=== PATIENT | male | born 1960 | race Caucasian/White ===

== ENCOUNTER 2018-01-19 12:22 | Emergency (ER) | payer BC, SELFPAY ==
[2018-01-19] MEDS ORDERED: Bacitracin Zinc 1 Packet ONE (13:07)
== END 2018-01-19 13:29 | disposition home or self-care (01) ==
LOC: ERS 12:22
DX: S42.301D Unspecified fracture of shaft of humerus, right arm, subsequent encounter for fracture with routine healing (principal); S72.002D Fracture of unspecified part of neck of left femur, subsequent encounter for closed fracture with routine healing; I10 Essential (primary) hypertension; Z85.3 Personal history of malignant neoplasm of breast; Z79.891 Long term (current) use of opiate analgesic; Z79.899 Other long term (current) drug therapy; W19.XXXD Unspecified fall, subsequent encounter

== ENCOUNTER 2018-02-05 11:47 | Emergency (ER) | payer SELFPAY ==
--- NOTE | 2018-02-05 13:05 | ULT ---
VENOUS DOPPLER ULTRASOUND OF THE LEFT LOWER EXTREMITY: Date: 02/05/18 HISTORY: Left lower extremity pain. Patient had hip surgery 3 weeks ago and not ambulatory. TECHNIQUE: Lynn scale ultrasound with color flow and spectral Doppler imaging of the deep venous systems of the left lower extremity performed. FINDINGS: There is good flow, compression, and augmentation noted in the left common femoral, femoral, deep fem oral, popliteal, posterior tibial, and greater saphenous veins. IMPRESSION: No evidence of deep venous thrombosis in the left lower extremity. POS: [facility]
--- NOTE | 2018-02-05 13:12 | RAD ---
LEFT HIP 2 VIEWS: Date: 02/05/18 HISTORY: Hip pain, surgery 5 weeks ago. FINDINGS/IMPRESSION: There are postop changes in the left proximal femur with metallic hardware in place. No acute fractur e, dislocation, or bony destruction is identified. There are mild degenerative changes in the left hi p joint. POS: [facility]
== END 2018-02-05 14:30 | disposition home or self-care (01) ==
LOC: ERS 11:47
DX: M25.552 Pain in left hip (principal); I10 Essential (primary) hypertension; F41.9 Anxiety disorder, unspecified; Z79.899 Other long term (current) drug therapy; Z85.3 Personal history of malignant neoplasm of breast; W19.XXXA Unspecified fall, initial encounter

== ENCOUNTER 2018-02-20 12:13 | Inpatient (IN) | payer SELFPAY ==
--- NOTE | 2018-02-20 14:55 | RAD ---
LEFT HIP THREE VIEWS: History: Left hip surgery 7 weeks ago. Left hip pain. FINDINGS/IMPRESSION: Post op changes with metallic hardware in the left proximal femur again seen without change in alignm ent. No significant callus formation is identified. There are minimal degenerative changes in the hip joint. POS: [facility]
[2018-02-20 15:20] LABS: #Basophils 0.1 thou/uL (0.0-0.2); #Lymphocytes 1.5 thou/uL (1.20-3.40); #Monocytes 0.6 thou/uL (0.11-0.59); %Basophils 0.7 % (0.0-1.0); %Eosinophils 0.5 % (0.0-10.0); %Lymphocytes 15.9 % (21.0-51.0); %Monocytes 6.6 % (0.0-10.0); %Neutrophils 76.3 % (42.0-75.0); Hemoglobin 16.3 g/dL (14.0-18.0); Mean Corpuscular HGB CONC 31.5 g/dL (32.0-36.0); Mean Corpuscular Hemoglobin 27.1 pg (27.0-31.0); Mean Corpuscular Volume 86.1 fl (80.0-94.0); Mean Platelet Volume 9.1 fL (7.4-10.4); Platelet Count 371 thou/uL (130-400); RBC Distribution Width 12.6 % (11.5-14.5); Red Blood Cell (RBC) Count 6.03 mill/uL (4.70-6.10); White Blood Cell (WBC) Count 9.1 thou/uL (4.8-10.8)
[2018-02-20 15:43] LABS: ALT (SGPT) 20 U/L (8-55); AST (SGOT) 48 U/L (5-34); Albumin 3.9 g/dL (3.5-5.0); Alkaline Phosphatase 192 U/L (40-150); Anion Gap 20 mmol/L (10-20); BUN (Urea Nitrogen) 87 mg/dL (8.4-25.7); Bilirubin, Total 0.9 mg/dL (0.2-1.2); Calc. Creatinine Clearance 0 mL/min (70-130); Carbon Dioxide 28 mmol/L (22-29); Chloride 88 mmol/L (98-107); Estimated GFR-MDRD 33; Globulin 4.9 g/dL (2.4-3.5); Glucose 124 mg/dL (70-105); Potassium 3.9 mmol/L (3.5-5.1); Protein, Total 8.8 g/dL (6.0-8.3); Sodium 132 mmol/L (136-145)
[2018-02-20 15:48] LABS: Calcium 15.2 mg/dL (7.8-10.44)
[2018-02-20 16:11] LABS: Acetaminophen Less than 6.0 mcg/mL (10.0-30.0); Alcohol Less than 10 mg/dL (Less than 10); CK (CPK) 56 U/L (30-200); Salicylate Less than 8.0 mg/dL (15.0-30.0)
[2018-02-20 16:25] LABS: CKMB 0.9 ng/mL (0-6.6); Troponin I 0.026 ng/mL (< 0.028)
[2018-02-20] MEDS ORDERED: Sodium Chloride 0.9% 1,000 ML IV SCH (18:34)
[2018-02-20] MEDS ORDERED: Dextrose 5% in Water 1,000 ML IV PRN (18:34)
[2018-02-20] MEDS ORDERED: Guaifenesin DM 100-10/5 ML UDCUP PO PRN (18:34)
[2018-02-20] MEDS ORDERED: Dextrose 50% Abboject 50 ML SYRINGE SLOW IVP PRN (18:34)
[2018-02-20] MEDS ORDERED: Fleet Enema 133 ML BOT PR PRN (18:34)
[2018-02-20] MEDS ORDERED: Milk Of Magnesia 30 ML UDCUP PO PRN (18:34)
[2018-02-20] MEDS ORDERED: Calcitonin,Salmon,Synthetic 200 UNITS/ML SC SCH (19:00)
[2018-02-20 19:30] LABS: Troponin I 0.022 ng/mL (< 0.028)
[2018-02-20] MEDS ORDERED: Furosemide 40 MG/4 ML VIAL SLOW IVP SCH (20:15)
[2018-02-20] MEDS ORDERED: Sodium Chloride 0.9% 10 ML ONE (20:41)
[2018-02-20] MEDS: Heparin 5,000 UNITS/ML VIAL SC SCH (20:48)
[2018-02-20] MEDS: Sodium Chloride 0.9% 1,000 ML IV SCH (20:51)
[2018-02-20] MEDS: Famotidine 20 MG TAB PO SCH (23:00)
[2018-02-20] MEDS: Docusate 100 MG CAP PO SCH (23:00)
--- NOTE | 2018-02-20 23:37 | CT ---
CT OF THE CHEST WITHOUT CONTRAST CT OF THE ABDOMEN AND PELVIS WITHOUT CONTRAST 02/20/18 COMPARISON: None. HISTORY: History of breast cancer. Evaluate for malignancy. TECHNIQUE: 1. Multiple contiguous axial images were obtained in a CT of the chest without contrast. Coronal reformats were performed. 2. Multiple contiguous axial images were obtained in a CT of the abdomen and pelvis without cont rast. Coronal reformats were performed. FINDINGS: CT CHEST: There are too numerous to count cannonball metastases scattered throughout the lungs. There are areas of compression atelectasis in the left lower lobe. No pleural effusion is seen. The heart is normal in size. No hilar or mediastinal lymphadenopathy are seen. There are numerous sclerotic and lytic lesions throughout the skeleton. This involves the ribs, and t o a greater extent the spine. There is height loss of the T12 vertebral body likely secondary to a pa thologic compression fracture with approximately 50% height loss. None of the thoracic spine lesions encroach upon the central canal. The chest wall soft tissues are unremarkable. CT ABDOMEN/PELVIS: There are subtle hypodensities in the liver which cannot be definitely characterized without IV contr ast but are concerning for hepatic metastases given the significant lung findings. The gallbladder, k idneys, adrenal glands, spleen, and pancreas are unremarkable although evaluation is limited without IV contrast. The large and small bowel are unremarkable. The appendix is normal. No abdominal or pelvic lymphadeno johnathan are seen. The patient has hardware in the left hip. There are numerous lytic and sclerotic lesions scattered throughout the skeleton which likely represe nt osseous metastases. At L1, in the right aspect of the pedicle, there is a large lesion measuring 3 .7 cm in size which appears to narrow the right aspect of the central canal. This is the largest of t he osseous lesions in the skeleton. The abdominal wall soft tissues are unremarkable. IMPRESSION: 1. 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 2. Hypodense small lesions in the liver likely represent hepatic metastases but cannot be charac terized without IV contrast. 3. Diffuse osseous metastatic disease. This is greatest in the spine and there is a lesion at L1 which causes narrowing of the central canal. There is also a compression deformity of the T12 verteb ral body secondary to significant involvement of the vertebral body by metastatic lesions. POS: [facility]
[2018-02-20] MEDS: Acetaminophen 325 MG TAB PO PRN (23:45)
--- NOTE | 2018-02-21 00:03 | CON ---
DATE OF CONSULTATION: 02/20/2018 CONSULTING PHYSICIAN: Dr. Alvarez. REQUESTING PHYSICIAN: Dr. Sim. REASON FOR CONSULTATION: Severe hypercalcemia and acute kidney injury. IMPRESSION: 1. Severe hypercalcemia. This is concerning for hypercalcemia in the face of malignancy, especially in this patient with remote history of breast cancer status post-surgical resection. However, the potential etiologies are not completely ruled out in this patient. Given the recent history of surgery and subsequent immobilization, this on itself can contribute to the hypercalcemia. Also, this patient has been on vitamin D and calcium supplementation. All these things put together could have generated this severe hypercalcemia that the patient is presenting with. 2. Mental status change. This is likely in the context of severe hypercalcemia. 3. Acute kidney injury. This is likely related to the hypercalcemia in the face of possible small nephrocalcinosis, plus or minus hyperfiltration that may have resulted in prerenal state compounded by the fact this patient has not been eating and drinking ok. PLAN: 1. Aggressive IV fluid resuscitation. 2. Calcitonin subcutaneous. 3. Loop diuretic to cover with aggressive IV fluid. 4. Discontinue this vitamin D supplementation. 5. Parathyroid hormone as being checked and this is suppressed as expected in this patient. 6. We will try and check vitamin D level. 7. Further management will be dependent on the clinical course. It will be good also to investigate this patient for possible malignancy. HISTORY 57 year old gentleman who was brought in here with mental status change-I could not get any history from him as patient is obviously confused-On presntation was not to be severely hypercalcemic with evidence of JOSSELIN and clinicaly dry-Has not been eating well and recent history of fall resulting in multiple fractures noted. PAST MEDICAL HISTORY: Significant for breast cancer status post-surgical resection, hypertension. MEDICATIONS: Reviewed and as documented on [email or web address]. ALLERGIES: PSEUDOEPHEDRINE. FAMILY HISTORY: Not significantly related to presenting illness. SOCIAL HISTORY: Denies alcohol, tobacco or illicit drug use. REVIEW OF SYSTEMS: Highly limited given the mental status of this patient. The patient could not offer much of any history as patient is completely confused and goes off tangent, talking of other things. PHYSICAL EXAMINATION: GENERAL: The patient noted to be very dry with the following vital signs. VITAL SIGNS: Afebrile with temperature 97.6, pulse 81, respiratory rate of 18, O2 sat 91%, blood pressure 129/90. HEENT: Remarkable for dry oral mucosa. Neck was supple. No conjunctival injection or icterus. CARDIOVASCULAR SYSTEM: First and second heart sounds were heard. RESPIRATORY SYSTEM: Clear to auscultation. DIGESTIVE: Revealed a benign abdomen with positive bowel sounds. EXTREMITIES: No peripheral edema. SKIN: No new gross rash. NEUROLOGIC: Revealed a patient who is confused with no lateralizing sign. SUMMARY: A 57-year-old gentleman who presented here with severe hypercalcemia, symptomatic in the face of recent fractures status post-surgical fixation. Thank you for this consultation. We will follow with you. LJ
--- NOTE | 2018-02-21 00:55 | HP ---
REASON FOR ADMISSION: Acute kidney injury, hypercalcemia likely due to malignancy, failure to thrive. HISTORY OF PRESENTING ILLNESS: The patient says he has been going downhill from last 2 weeks. He has not been able to eat or drink from last 2 weeks due to very poor appetite. He occasionally drinks a sip of Ensure. He has also not been drinking enough fluids. This has been ongoing for 2 weeks now. He gives history of fall when he tried to open a door and got entangled with a cane he was using for suspected quadriceps injury which he thought. During this fall, the patient sustained fracture of right humerus and left hip. This was on 01/02. He had surgery for the same at [facility] in [place]. The patient apparently moved there and purchased land and wanted to start new life. He was discharged on 01/04 after surgery and the patient came back here. He lives with his brother and a friend of him. He has seen Dr. Farrar 2 weeks back and was given a prescription for Percocet. He has taken nearly 19 tablets of the same in the last one week. He has also been taking Motrin 1 to 2 tabs a day for pain. No complaints of blood in the stool. The last regular bowel movement he had was 2 weeks back. He says he is constipated as he is not eating anything. Also, of note, the patient was 199 pounds when he got admitted in December in [place], currently he is around 176 pounds and has lost nearly 23 pounds now. PAST MEDICAL AND SURGICAL HISTORY: History of right breast cancer status post mastectomy done in 2013 at [facility]; hypertension; anxiety disorder ; left hip and right humerus surgeries done on 01/03/2018 at [facility] in [place]. CURRENT MEDICATIONS: Nadolol 40 mg daily, lisinopril with hydrochlorothiazide 20/12.5 mg p.o. daily, alprazolam 0.5 mg daily p.r.n. for anxiety, calcium, Percocet 5/325 mg q.6 hourly p.r.n., and Motrin p.r.n. ALLERGIES: PSEUDOEPHEDRINE. PERSONAL HISTORY: Does not abuse alcohol or drugs. No history of smoking. FAMILY HISTORY: Mother at the age of 91 years from old age. Father at the age of 69 years. He has had history of lung cancer with metastasis to brain. REVIEW OF SYSTEMS: The following complete review of systems was negative, unless otherwise mentioned in the HPI or below: Constitutional: Weight loss or gain, ability to conduct usual activities. Skin: Rash, itching. Eyes: Double vision, pain. ENT/Mouth: Nose bleeding, neck stiffness, pain, tenderness. Cardiovascular: Palpitations, dyspnea on exertion, orthopnea. Respiratory: Shortness of breath, wheezing, cough, hemoptysis, fever or night sweats. Gastrointestinal: Poor appetite, abdominal pain, heartburn, nausea, vomiting, constipation, or diarrhea. Genitourinary: Urgency, frequency, dysuria, nocturia. Musculoskeletal: Pain, swelling. Neurologic/Psychiatric: Anxiety, depression. Allergy/Immunologic: Skin rash, bleeding tendency. PHYSICAL EXAMINATION: GENERAL: The patient is a 57-year-old male who is currently very lethargic, but responds well to questions. VITAL SIGNS: Blood pressure 126/70, pulse 76 per minute, respiratory rate 16 per minute, temperature 97.8 degrees Fahrenheit, saturating 98% on 2 L nasal cannula. NECK: Supple, no elevated JVD. HEENT: Eyes, extraocular muscles intact. Pupils reacting to light. Oral cavity, mucous membranes are dry. No exudates or congestion. CARDIOVASCULAR: S1, S2 heard. Regular rhythm. RESPIRATORY: Air entry 1+ bilateral. No rales or rhonchi. ABDOMEN: Soft, bowel sounds heard. No tenderness, rigidity or guarding. EXTREMITIES: No peripheral edema or calf tenderness. VASCULAR SYSTEM: Peripheral pulses 2+ bilateral, no ischemic ulcerations or gangrene. CENTRAL NERVOUS SYSTEM: No gross focal deficits seen. The patient is lethargic , but oriented well. PSYCHIATRIC: The patient appears to be a bit depressed, otherwise, no hallucinations or delusions. LABORATORY AND X-RAY FINDINGS: EKG done shows normal sinus rhythm at 77 beats per minute. There are T-wave inversions seen in V3-V6. White count of 9, H and H 16 and 51, platelet count 371, MCV is 86 with 76% neutrophils. Sodium 132 , chloride 88, serum bicarbonate 28, BUN 87, creatinine 2.0. Serum glucose 124. Serum calcium is 15.2. Albumin is 3.9, AST 48, ALT 20, alkaline phosphatase 192. First set of cardiac enzymes are negative. Lipase is 146. TSH 5.65. Acetaminophen levels are less than 6. Plasma alcohol less than 10. Hip x-ray done shows postop changes with metallic hardware in the left proximal femur. CLINICAL IMPRESSION AND PLAN: The patient will be admitted to telemetry for acute kidney injury, moderate to severe dehydration, failure to thrive, hypercalcemia, to rule out malignancy. I did discuss his findings with Dr. Farrar, orthopedic surgeon, who was also of the opinion that it might have been a pathologic fracture that the patient sustained in December. In view of this, we will obtain a CT chest, abdomen and pelvis without contrast in view of acute kidney injury to see if there is any mass. Echo with 2D Doppler for ejection fraction. The patient has mild elevated lipase and alkaline phosphatase, so we will obtain a CA 19-9. We will also obtain CEA levels. I have consulted Dr. Alvarez for Nephrology. He will be on intense bowel regimen for his constipation. Normal saline at 150 mL per hour for hypercalcemia. We will hold on zoledronic acid for now until a diagnosis is established or if his repeat calcium is still high in the morning. The patient appears to be hemodynamically stable and will be closely monitored on telemetry for now. The patient likely will need placement as he has been bedridden and has been wheelchair bound after his surgery. Morning team should try to obtain records from [place] where he had surgery and if any biopsies were obtained/ suspicion of pathological fracture etc. CODE STATUS: FULL. His brother is the power of attorney law clerk for him. [email or web address]
[2018-02-21] MEDS: Sodium Chloride 0.9% 1,000 ML IV SCH ×5 (01:46→18:14)
[2018-02-21 05:27] LABS: #Eosinphils 0.1 thou/uL (0.0-0.7); #Lymphocytes 1.1 thou/uL (1.20-3.40); #Monocytes 0.7 thou/uL (0.11-0.59); #Neutrophils 6.9 thou/uL (1.40-6.50); %Basophils 0.1 % (0.0-1.0); %Lymphocytes 12.4 % (21.0-51.0); %Neutrophils 78.6 % (42.0-75.0); Hemoglobin 14.9 g/dL (14.0-18.0); Mean Corpuscular HGB CONC 32.2 g/dL (32.0-36.0); Mean Corpuscular Hemoglobin 27.8 pg (27.0-31.0); Mean Corpuscular Volume 86.2 fl (80.0-94.0); Mean Platelet Volume 9.1 fL (7.4-10.4); Platelet Count 315 thou/uL (130-400); RBC Distribution Width 12.5 % (11.5-14.5); Red Blood Cell (RBC) Count 5.35 mill/uL (4.70-6.10); White Blood Cell (WBC) Count 8.8 thou/uL (4.8-10.8)
[2018-02-21 05:45] LABS: Albumin 3.4 g/dL (3.5-5.0); Anion Gap 19 mmol/L (10-20); BUN (Urea Nitrogen) 66 mg/dL (8.4-25.7); BUN/Creatinine Ratio 46.15; Calc. Creatinine Clearance 61 mL/min (70-130); Calcium 11.9 mg/dL (7.8-10.44); Carbon Dioxide 25 mmol/L (22-29); Chloride 95 mmol/L (98-107); Estimated GFR-MDRD 51; Glucose 105 mg/dL (70-105); Phosphorus 2.4 mg/dL (2.3-4.7); Potassium 3.5 mmol/L (3.5-5.1); Sodium 135 mmol/L (136-145)
--- NOTE | 2018-02-21 09:56 | PRG ---
DATE OF SERVICE: 02/21/2018 SUBJECTIVE: The patient seems to be doing much better. PHYSICAL EXAMINATION: VITAL SIGNS: Afebrile, temperature 96.3, pulse 77, respiratory rate 16, O2 sat 96%, blood pressure 1 36/87. HEENT: Unremarkable. Moist oral mucosa. No conjunctival injection or icterus. NECK: Supple. CARDIOVASCULAR: First and second heart sounds were heard. RESPIRATORY: Clear to auscultation. DIGESTIVE: Revealed a benign abdomen with positive bowel sound. EXTREMITIES: No peripheral edema. SKIN: No new gross rash. LYMPHATICS: No peripheral lymphadenopathy. LABORATORY INVESTIGATIONS: Showed a creatinine down to 1.43, BUN of 66, calcium down to 11.9. IMAGING: CAT scan showed extensive metastasis. IMPRESSION: 1. Severe hypercalcemia in the context of diffuse bone metastasis. 2. Acute kidney injury, which seems to have improved. PLAN: 1. Deescalate IV fluid resuscitation. 2. Consider Oncology consults. 3. Consider administration of zoledronic acid. 4. Further management to be dependent on the clinical course. Prognosis is poor.
[2018-02-21] MEDS: Docusate 100 MG CAP PO SCH ×3 (09:58→21:05)
[2018-02-21] MEDS: Heparin 5,000 UNITS/ML VIAL SC SCH ×2 (09:58→21:06)
[2018-02-21] MEDS: Polyethylene Glycol 3350 17 GM Packet PO SCH (09:59)
[2018-02-21] MEDS ORDERED: Zoledronic Acid 4 MG in Sodium Chloride 0.9% 100 ML IVPB SCH (10:00)
--- NOTE | 2018-02-21 13:14 | PDOC.PN ---
- Subjective Encounter Start Date: 02/21/18 Encounter Start Time: 13:10 Subjective: nsg notes rev, fatou ovn, pt oriented x3, still tired, no focal c/o -: reports he had a mastectomy 5yrs ago at [facility] for breast ca no -: subsequent f/u bc he wasn't told he needed to, has PCP in town - Objective Resuscitation Status: Resuscitation Status FULL:Full Resuscitation Vital Signs & Weight: Vital Signs (12 hours) Temp Pulse Resp BP BP Pulse Ox 02/21/18 08:00 96.3 F L 77 16 136/87 96 02/21/18 04:00 97.8 F 82 12 125/84 91 L Weight Weight 163 lb 9.6 oz I&O: 02/20/18 02/21/18 02/22/18 06:59 06:59 06:59 Intake Total 2384 Output Total 1925 Balance 459 Result Diagrams: 02/21/18 05:05 02/21/18 05:05 Phys Exam - Physical Examination Constitutional: NAD HEENT: PERRLA, moist MMs, sclera anicteric Respiratory: no wheezing, no rales, no rhonchi, clear to auscultation bilateral Cardiovascular: RRR, no significant murmur, no rub Gastrointestinal: soft, non-tender, no distention, positive bowel sounds Neurological: moves all 4 limbs Psychiatric: normal affect, A&O x 3 Dx/Plan - Plan * 57M hx breast ca p/w cc: weakness * * hypercalcemia * concerned related to potential malignancy given pattern of radiographic findings in CT * improving - IVF, calcitonin * apprec nephrology c/s JOSSELIN * likely 2/2 vol depletion/ dehydration * continue to monitor * close I/O * suspect improvement with hydration suggesting pre-renal component CT chest/abd/pelv finding c/w potential metastatic dz * unclear primary but pt with personal hx of breast ca * apprec pulm c/s re: whether or not bronch would be an option for obtaining diagnostic sample diet: renal, as sushma activity: as sushma dvt ppx heparin 2/2 renal dysfxn Review of Systems - Medications/Allergies Allergies/Adverse Reactions: Allergies Allergy/AdvReac Type Severity Reaction Status Date / Time pseudoephedrine Allergy Verified 02/20/18 18:44 Medications: Current Medications Acetaminophen (Tylenol) 650 mg PO Q4H PRN PRN Reason: Headache/Fever or Pain Last Admin: 02/20/18 23:45 Dose: 650 mg Dextrose/Water (Dextrose 50%) 25 gm SLOW IVP PRN PRN PRN Reason: Hypoglycemia Docusate Sodium (Colace) 100 mg PO BID [facility] Last Admin: 02/21/18 10:09 Dose: Not Given Famotidine (Pepcid) 20 mg PO 2100 [facility] Last Admin: 02/20/18 23:00 Dose: 20 mg Glucagon (Glucagon) 1 mg IM PRN PRN PRN Reason: Hypoglycemia Guaifenesin/Dextromethorphan (Robitussin Dm) 15 ml PO Q4H PRN PRN Reason: Cough Heparin Sodium (Porcine) (Heparin) 5,000 units SC BID [facility] Last Admin: 02/21/18 09:58 Dose: 5,000 units Dextrose/Water (D5w) 1,000 mls @ 0 mls/hr IV .Q0M PRN; As Directed PRN Reason: Hypoglycemia Zoledronic Acid 4 mg/ Sodium (Chloride) 100 mls @ 400 mls/hr IVPB 1000 [facility] Stop: 02/21/18 14:00 Last Admin: 02/21/18 11:00 Dose: 100 mls Sodium Chloride (Normal Saline 0.9%) 1,000 mls @ 100 mls/hr IV .Q10H [facility] Last Admin: 02/21/18 10:09 Dose: 1,000 mls Magnesium Hydroxide (Milk Of Magnesium) 30 ml PO DAILYPRN PRN PRN Reason: Constipation Polyethylene Glycol (Miralax) 17 gm PO DAILY [facility] Last Admin: 02/21/18 09:59 Dose: Not Given Sodium Biphosphate/Sodium Phosphate (Fleet Enema) 133 ml RI ONE PRN PRN Reason: Constipation Stop: 02/21/18 18:35
[2018-02-21] MEDS: Famotidine 20 MG TAB PO SCH (21:06)
[2018-02-21] MEDS: Acetaminophen 325 MG TAB PO PRN (22:33)
[2018-02-22] MEDS ORDERED: ALPRAZolam 1 MG TAB PO SCH ×3 (01:45→21:00)
[2018-02-22] MEDS: Sodium Chloride 0.9% 1,000 ML IV SCH ×2 (05:57→21:24)
[2018-02-22 07:47] VITALS: BMI 23.8
[2018-02-22 08:58] LABS: INR-International Normal Ratio 1.1; Prothrombin Time 14.5 SEC (12.0-14.7)
[2018-02-22] MEDS: Nadolol 40 MG TAB PO SCH (09:40)
[2018-02-22] MEDS: Heparin 5,000 UNITS/ML VIAL SC SCH ×2 (09:41→21:25)
[2018-02-22] MEDS: Polyethylene Glycol 3350 17 GM Packet PO SCH (09:43)
[2018-02-22] MEDS: Docusate 100 MG CAP PO SCH ×2 (09:43→21:25)
--- NOTE | 2018-02-22 10:22 | CON ---
DATE OF CONSULTATION: 02/21/2018 HISTORY OF PRESENT ILLNESS: Mr. Prakash is a very pleasant 57-year-old male. He tells me he was diagnosed 5 years ago with breast cancer in his right breast. He says his presenting symptom was a lump on his breast. Breast cancer was resected. He tells me that he had lymph node biopsied and that there was cancer in the lymph nodes. He tells me he had a followup CT after the surgery of his chest and abdomen and was told that if he did not hear from the doctors, he was fine and not to worry. He has not seen an oncologist or surgeon since that time. He recently moved up to the [facility] and bought 10 acres as well as a trailer up there. He paid just over 30,000 dollars for. He was opening a door and got a tangled up in his crutches, which he said led to a fall. He is walking on crutches because he thought he had a pulled thigh muscle. He had a surgery at [facility] and subsequently came back here for support. He has been seen by Dr. Farrar. He says he has been constipated (possibly because of the opiates he has taken in) and losing weight. He is here because of the above complaints as well as hypercalcemia and very abnormal chest x-ray and chest CT. PAST MEDICAL HISTORY: 12 point system reviewed otherwise remarkable for hypertension. MEDICATIONS: Prior to admission, he was on nadolol, hydrochlorothiazide, lisinopril, Xanax for anxiety, calcium, Percocet, and Motrin. ALLERGIES: He reports PSEUDOEPHEDRINE intolerance. SOCIAL HISTORY: He is a nonsmoker, nondrinker. He has never used drugs. FAMILY HISTORY: His mother from old age. Father in his 60s of lung cancer. REVIEW OF SYSTEMS: Otherwise negative. He has aches and pains all over and he is extremely weak. His biggest complaint to me was that he was not stable on his feet and needed a lot of help ambulating and needs some rehabilitation. Review of systems is otherwise 10 point negative. PHYSICAL EXAMINATION: GENERAL: This is a very pleasant gentleman, in no distress. VITAL SIGNS: Blood pressure 147/86 this afternoon, his heart rate 87. He is afebrile, respiratory rate is 16, oximetry is surprisingly 96% on room air. HEENT: Pupils are equal. Extraocular movements are full. NECK: Supple, no lymphadenopathy. LUNGS: Clear. HEART: Regular rhythm, no S3. ABDOMEN: Soft and nontender. I do not feel any hepatomegaly or masses. EXTREMITIES: No clubbing, cyanosis, or edema. His scar where his right breast was is well healed. He has a concave area around where his pectoralis muscle would be. LYMPH: I did not palpate any axillary, supraclavicular, cervical or inguinal nodes. IMAGING: Chest CT reviewed by me shows multiple round irregular shaped lesions consistent with metastases. LABORATORY DATA: White count is 8.8, hemoglobin is 14.9, platelets 315,000. Sodium 135, potassium 3.5, chloride 95, bicarbonate 25, BUN 66, creatinine 1.43. Creatinine on admission was 2.08. IMPRESSION AND PLAN: Metastatic breast cancer. He also has multiple lytic bone lesions seen on his chest, abdomen and pelvis CT. He has hardware in his left femur. No obvious tumors seen there. The best option would be a CT guided biopsy of one of the lesions at his left lung base, it abuts the pleura. There is a chance he could have endobronchial disease, but the risk for a pneumothorax is low and risk of bleeding is low and the biopsy will not require sedation. I suspect this will give us an adequate amount of tissue to make a diagnosis. We need to obtain records from [place] to see what the hormone status of the resected tumor was. Oncology will be consulted. His hypercalcemia, we will need to be monitored. Suspect he was intravascularly depleted because of his hypercalcemia, hence the elevated creatinine that was improving with hydration. He needs to continue with IV hydration. This is a 70-minute consult, greater than 50% of the time was spent coordinating care on the unit. LJ
[2018-02-22] MEDS ORDERED: Midazolam HCl 2 mg/2 ml Vial ONE (11:12)
[2018-02-22] MEDS ORDERED: Fentanyl 100 MCG/2 ML VIAL ONE (11:12)
[2018-02-22] MEDS ORDERED: Communication Order-Pharmacy FS SCH (13:00)
[2018-02-22 14:38] LABS: Anion Gap 14 mmol/L (10-20); Calc. Creatinine Clearance 97 mL/min (70-130); Calcium 10.7 mg/dL (7.8-10.44); Carbon Dioxide 23 mmol/L (22-29); Chloride 101 mmol/L (98-107); Estimated GFR-MDRD 78; Glucose 93 mg/dL (70-105); Potassium 3.4 mmol/L (3.5-5.1); Sodium 135 mmol/L (136-145)
[2018-02-22 14:50] LABS: BUN (Urea Nitrogen) 28 mg/dL (8.4-25.7)
--- NOTE | 2018-02-22 14:55 | CT ---
CT GUIDED LUNG MASS BIOPSY: Date: 02/22/18 HISTORY: Multiple large lung masses. COMPARISON: CT chest, abdomen, and pelvis dated 02/20/18. TECHNIQUE: The patient was brought to the CT suite. All questions were answered. The patient's left chest was prepped and draped in the normal sterile fashion. Informed consent was o btained. Timeout was performed. Approximately 4 mL of lidocaine was instilled into the superficial and deep soft tissues for anesthes ia. The left lung mass was accessed using a 17 gauge introducer. Using an 18 gauge BioPince needle, a tot al of two 11 mm cores were obtained. The patient tolerated the procedure well and without complicatio n. IMPRESSION: Technically successful CT guided lung mass biopsy. Pathology confirmed adequacy. POS: [facility]
--- NOTE | 2018-02-22 15:01 | PRG ---
DATE OF SERVICE: 02/22/2018 The patient seen and examined with no new complaint noted. PHYSICAL EXAMINATION: VITAL SIGNS: Afebrile, temperature 97, pulse 80, respiratory rate of 14, O2 sat 96%, blood pressure 142/93. HEENT: Unremarkable. CARDIOVASCULAR: First and heart sounds were heard. RESPIRATORY: Clear to auscultation. DIGESTIVE: Revealed a benign abdomen. EXTREMITIES: No peripheral edema. SKIN: No new gross rash. LYMPHATICS: No peripheral lymphadenopathy. IMPRESSION: 1. Severe hypercalcemia in the context of metastatic bone disease. 2. Acute kidney injury, improving. PLAN: 1. Continue renal supportive measures. 2. Patient already received calcitonin, zoledronic acid and on IV fluid. 3. Further management to be dependent on the clinical course.
--- NOTE | 2018-02-22 18:30 | PRG ---
DATE OF SERVICE: 02/22/2018 SUBJECTIVE: Huber Prakash was awakened today. He underwent a CT guided biopsy. He seems to be a clarence le dysarthric today. He has no complaints. OBJECTIVE: VITAL SIGNS: He is afebrile, heart rate is 81, respiratory rate is 20, oximetry on room air is 95%, and blood pressure 156/99. LUNGS: Still clear. HEART: Regular rhythm. ABDOMEN: Soft. IMPRESSION AND PLAN: 1. Probable recurrent metastatic breast cancer. 2. ?mild dysarthria. His medical power of staff attorney is also his best friend, who was at the bedside and we talked about his symptoms. His best friend says that he thinks [facility] called [facility] for follow[facility], but he never would return their calls, so they eventually quit michi molina. I will order magnetic resonance imaging of his brain. He will also need a bone scan and then bone webster rvey of weightbearing bones if he has abnormalities in his long bones. Oncology has been consulted.
[2018-02-22] MEDS: Famotidine 20 MG TAB PO SCH (21:25)
[2018-02-22] MEDS: ALPRAZolam 1 MG TAB PO SCH (21:25)
[2018-02-23] MEDS: hydrALAZINE 20 MG/ML VIAL SLOW IVP PRN ×2 (00:14→08:34)
[2018-02-23] MEDS: Sodium Chloride 0.9% 1,000 ML IV SCH ×3 (06:34→18:04)
[2018-02-23] MEDS: Docusate 100 MG CAP PO SCH ×2 (08:34→22:20)
[2018-02-23] MEDS: Polyethylene Glycol 3350 17 GM Packet PO SCH (08:34)
[2018-02-23] MEDS: Heparin 5,000 UNITS/ML VIAL SC SCH ×2 (08:34→21:38)
[2018-02-23] MEDS: ALPRAZolam 0.5 MG TAB PO SCH (08:34)
[2018-02-23] MEDS: Nadolol 40 MG TAB PO SCH (08:42)
[2018-02-23] MEDS ORDERED: Zoledronic Acid 4 MG in Sodium Chloride 0.9% 100 ML IVPB SCH (10:00)
--- NOTE | 2018-02-23 10:30 | CON ---
DATE OF CONSULTATION: 02/23/2018 REASON FOR CONSULTATION: Probable metastatic breast cancer. HISTORY OF PRESENT ILLNESS: The patient is a 57-year-old man who is admitted for altered mental status and gait instability with pain. He underwent a right mastectomy in 2014 at [facility] in [place] for breast cancer. We have no source documents for review and details are scant. However, it appears he did have at least a positive lymph node. No further treatment was delivered although there were attempts to get him to follow up. He subsequently moved to [facility], but continued to have pain in the left hip that progressed and he then suffered a left femur fracture secondary to a minor fall in the bathroom. There was also a fracture of the right humerus at that time. He underwent surgery at the [facility] with ORIF of the left hip and right humerus fracture. He has not been told of any evidence of a pathologic fracture. The surgery was in December and he has returned to this area to be closer to his brother and friends who are helping care for him. He was then brought to the emergency room with gait instability and altered mental status. The evaluation since admission has revealed no focal neurological findings. However, chemistries confirmed acute kidney injury with creatinine of 2.08 and BUN 87. The calcium was 15.2. Globulin was slightly elevated at 4.9. The alkaline phosphatase was elevated at 192. Imaging has included CT scan of the chest, abdomen, and pelvis which reveals rather dramatic cannonball lesions, too numerous to count, in each lung. There were also numerous sclerotic and lytic lesions throughout the skeleton involving essentially the entire osseous tissue. There were small hypodense lesions within the liver which were indeterminant, but worrisome for metastatic disease in this setting. A left hip film confirmed surgical hardware with no callus formation. No identification of lytic disease was seen. On 02/22/2018, he underwent a CT guided biopsy of a lung lesion and that specimen result is pending. He has been treated with intravenous fluids and calcitonin with normalization of kidney function and calcium. He remains nearly bedridden and has some alteration in speech pattern. I am asked to see the patient at this time to provide further management recommendations. ALLERGIES: He describes sensitivity to PSEUDOEPHEDRINE. MEDICATIONS: Nadolol, lisinopril/hydrochlorothiazide, alprazolam, and Percocet. MEDICAL ILLNESS: The patient had breast cancer as mentioned above. He has a history of hypertension and anxiety. PAST SURGICAL HISTORY: He underwent surgical procedures on the left hip and right humerus as mentioned in the HPI. PERSONAL HISTORY: He does not smoke or use alcohol. FAMILY HISTORY: There is no history of breast or ovarian cancer in the family. The father presumably of lung cancer with metastasis to the brain. REVIEW OF SYSTEMS: Except as mentioned in the history of present illness, the patient denies significant cardiopulmonary, GI, , musculoskeletal, or neurological complaints. PHYSICAL EXAMINATION: VITAL SIGNS: Temperature 98, pulse 86 and regular, respirations 20, blood pressure 153/100. GENERAL: The patient is a somewhat chronically ill man in no acute distress. He is alert, oriented, and cooperative. There is very slight dysphagia with speech. HEENT: The extraocular movements are intact. Pupils equal, round, and reactive to light. NECK: Supple. LUNGS: Clear. CARDIOVASCULAR: Regular rate and rhythm without murmur, rub, gallop or click. ABDOMEN: No tenderness, organomegaly, masses, bruits or ascites. EXTREMITIES: No clubbing, cyanosis, edema. SKIN: Normal. LYMPH: No adenopathy. MUSCULOSKELETAL: No active arthritis. NEUROLOGIC: No focal findings and the cranial nerves II-XII are grossly intact. LABORATORY DATA: See history of present illness. IMAGING: See history of present illness. IMPRESSION: 1. Metastatic breast cancer. 2. Hypercalcemia of malignancy. 3. Altered mental status, concerns of being hypercalcemia or brain metastasis. RECOMMENDATIONS: The patient will undergo breast MRI of the brain and a bone scan, with which I am in agreement. I will add Zometa today for more definitive longer term control of hypercalcemia and to improve the bone health in the setting of osseous metastasis. We will await the biopsy results. He will undoubtedly require chemotherapy and I will arrange for MediPort placement. The exact treatment regimen, however, will depend upon results of the biopsy and the breast cancer profile. When he is ready for discharge, I will follow him up in the office. His friend has my contact information. Thanks very much for allowing me to provide my recommendations. LJ
--- NOTE | 2018-02-23 10:55 | MRI ---
BRAIN MRI WITH AND WITHOUT CONTRAST: Date: 02/23/18 HISTORY: Breast cancer. Dehydration. Altered mental status and hypercalcemia. Evaluate for metastasis. COMPARISON: None. TECHNIQUE: Brain MRI is performed with and without intravenous Gadolinium administration. Multisequential, multi planar imaging is performed. FINDINGS: Central arterial flow-voids are maintained. Absent restricted diffusion. There is limited evaluation of the brain parenchyma due to motion degradation. No obvious loss of cor tical kam-white matter differentiation. No obvious evidence of hydrocephalus. Chronic small vessel i schemic changes of the white matter identified. There is intrinsic T1 hyperintense, T2 hyperintense, loss of signal intensity on the GRE sequence inv olving a lesion in the right cerebellar hemisphere measuring 2.5 x 1.8 cm. An acute hemorrhagic metas tatic focus is favored. There are additional intrinsically T1 hyperintense lesions throughout the bra in parenchyma. Evaluation of the lesions on the postcontrast image is limited due to intrinsic T1 hyp erintensity. Multifocal metastatic lesions are suspected. No significant midline shift. Basilar ciste rns are patent. Partial opacification of bilateral mastoid air cells, right greater than left. IMPRESSION: Multifocal hemorrhagic intracranial metastasis. Continued follow-up with noncontrast head CT is recom mended. POS: [facility]
--- NOTE | 2018-02-23 12:28 | NM ---
NUCLEAR MEDICINE BONE SCAN: Date: 02/23/18 HISTORY: Cancer. COMPARISON: CT dated 02/20/18. TECHNIQUE: Whole body imaging was performed after the intravenous administration of 31.7 mCi technetium-99m MDP. FINDINGS: There is extensive abnormal increased radiotracer uptake throughout the axial and appendicular spine. There is likely a pathologic fracture of the left femur. Abnormal uptake in the right humerus, as we ll as in the ribs, and the thoracic, cervical, and lumbar spine. No disease is seen distal to the humerus or distal to the mid femoral shafts. Both kidneys and urinary bladder are well visualized. IMPRESSION: Extensive axial and appendicular metastatic disease. POS: [facility]
--- NOTE | 2018-02-23 18:08 | PRG ---
DATE OF SERVICE: 02/23/2018 SUBJECTIVE: The patient was seen and examined and noted with the following vital signs. PHYSICAL EXAMINATION: VITAL SIGNS: Afebrile with temperature 97.8, pulse 87, respiratory rate of 12-16, O2 sat 92% with a blood pressure 136/83. HEENT: Unremarkable with moist oral mucosa. Neck is supple. No conjunctival injection or icterus. CARDIOVASCULAR SYSTEM: First and second heart sounds were heard. RESPIRATORY SYSTEM: Clear to auscultation. DIGESTIVE SYSTEM: Revealed a benign abdomen with positive bowel sounds. EXTREMITIES: No peripheral edema. LABORATORY INVESTIGATION: Showed sodium of 135, potassium 3.4, creatinine 0.99, and calcium of 10.7. IMPRESSION: 1. Severe hypercalcemia much improved in the context of metastatic bone disease. 2. Acute kidney injury in the context of severe hypercalcemia, much improved. PLAN: 1. We will continue current renal supportive measures. 2. Further management will be dependent on the clinical course as well as further recommendations fr om the other services.
--- NOTE | 2018-02-23 19:23 | PRG ---
DATE OF SERVICE: 02/23/2018 SERVICE: Pulmonary Medicine. INTERVAL HISTORY: The patient is doing great from a respiratory standpoint. He is breathing comfort ably. He denies having any chest discomfort. Otherwise, there has been no interval change to his co ndition. PHYSICAL EXAMINATION: VITAL SIGNS: Afebrile, pulse 86, respirations 14 and saturation 98% on room air. GENERAL: The patient is awake and alert, in no apparent distress. LUNGS: Decent air entry. There is no prolonged expiratory phase or wheezing present. HEART: Normal rate and regular. ABDOMEN: Soft, nontender and nondistended. Bowel sounds are positive. MUSCULOSKELETAL: No cyanosis or clubbing. No pitting in the bilateral lower extremities. NEUROLOGIC: Grossly nonfocal. IMAGING DATA: 1. MRI of the brain demonstrates multiple metastatic lesions to the brain. There was hemorrhagic co nversion to several of them. 2. Bone scan demonstrates multiple osseous lesions. ASSESSMENT: Widespread metastatic disease with history of breast cancer. PLAN: Pulmonary will continue to follow intermittently during the hospital stay. We will watch his neurologic status closely. If he has any acute decompensation, stat CT of the head will be performed .
[2018-02-23] MEDS: Famotidine 20 MG TAB PO SCH (21:38)
[2018-02-23] MEDS: ALPRAZolam 1 MG TAB PO SCH (21:38)
[2018-02-24] MEDS: Sodium Chloride 0.9% 1,000 ML IV SCH ×3 (00:13→19:54)
[2018-02-24] MEDS: Nadolol 40 MG TAB PO SCH (08:33)
[2018-02-24] MEDS: ALPRAZolam 0.5 MG TAB PO SCH (08:33)
[2018-02-24] MEDS: Polyethylene Glycol 3350 17 GM Packet PO SCH (08:34)
[2018-02-24] MEDS: Heparin 5,000 UNITS/ML VIAL SC SCH ×2 (08:34→21:34)
[2018-02-24] MEDS: Docusate 100 MG CAP PO SCH ×2 (08:34→19:55)
--- NOTE | 2018-02-24 09:01 | CON ---
DATE OF CONSULTATION: 02/24/2018 CHIEF COMPLAINT: Recent femur and humerus fracture. HISTORY OF PRESENT ILLNESS: Mr. Prakash is a 57-year-old male who has been admitted several days ago for altered mental status. I have seen him recently in the [facility]. He was treated in [place] for a left proximal femur fracture and a right humerus fracture. He returned back to this area to have his family help care for him. When I saw him in the clinic, I was somewhat worried about pathologic fracture. He had not been told that he possibly had a pathologic fracture in [place]. He does have a remote history of breast cancer. I discussed his care with his primary care physician at [facility] and they were planning to coordinate further workup and revisit his case with his oncologist in [place]. Unfortunately, prior to that being done, he developed mental status changes and was found to have hypercalcemia. He has been admitted to the hospital. He has now been found to have widespread metastatic disease on his imaging. He is feeling fine, he reports. No concerns. Pain is minimal. He says, he wants to go home. ALLERGIES: PSEUDOEPHEDRINE. PAST MEDICAL HISTORY: Previous breast cancer status post resection 5 years ago. Also, history of hypertension and anxiety. PAST SURGICAL HISTORY: Recent left intramedullary nail of the femur and right humerus fracture ORIF in [place]. PHYSICAL EXAMINATION: VITAL SIGNS: Temperature is 97.4, pulse is 84, respiratory rate is 16, 90% on room air. GENERAL: He is alert, lying supine in no apparent distress. RESPIRATORY: Breathing comfortably. ABDOMEN: Soft, nontender, nondistended. MUSCULOSKELETAL: The patient's left leg and right arm wounds are well healed. He has good range of motion of the shoulder. He can move the hip and is able to arise independently. He has intact sensation distally. Palpable pulse. IMAGES: X-rays of the left hip are reviewed. These demonstrate a left intertrochanteric femur fracture, status post intramedullary nail. There is an abnormal appearance at the fracture site with possible lytic lesion. Humerus x- rays are pending currently. IMPRESSION: Widespread metastatic disease, likely from previous breast cancer in a patient who has suffered left proximal femur and right humerus pathologic fracture recently treated in [place]. PLAN: At this point, the patient needs no further surgical treatment. He does not seem to have any other impending fractures or significant long bone metastatic disease that will require stabilization for now. He can weightbear as tolerated on the left leg. He already has a followup visit scheduled with me in the [facility]opedic Clinic in approximately 1 month to check x-rays to confirm that he has healed. I will check an x-ray of his humerus today as this has not yet been done. His treatment for metastatic cancer and workup is ongoing. LJ
--- NOTE | 2018-02-24 09:26 | PDOC.PN ---
- Subjective Encounter Start Date: 02/22/18 Encounter Start Time: 14:00 Subjective: LATE ENTRY NOTE for 02/22/18 -: pt seen with friend/ room mate at bedside. pt no new c/o, d/w patient's -: friend plan of action. Friend states that patient was asked to complete post-mastectomy chemo several years ago but declined. - Objective Resuscitation Status: Resuscitation Status FULL:Full Resuscitation Vital Signs & Weight: Vital Signs (12 hours) Temp Pulse Resp BP Pulse Ox 02/24/18 07:05 97.6 F 82 20 157/95 H 90 L 02/24/18 03:48 98 F 87 16 168/109 H 90 L 02/23/18 23:16 97.4 F L 84 20 176/109 H 90 L Weight Admit Weight 168 lb 4 oz Weight 180 lb 9.6 oz I&O: 02/23/18 02/24/18 02/25/18 06:59 06:59 06:59 Intake Total 3030 2950 Output Total 2500 1300 Balance 530 1650 Result Diagrams: 02/21/18 05:05 02/22/18 13:55 Phys Exam - Physical Examination Constitutional: NAD HEENT: PERRLA, moist MMs, sclera anicteric Respiratory: no wheezing, no rales, no rhonchi, clear to auscultation bilateral Cardiovascular: RRR, no significant murmur, no rub Gastrointestinal: soft, non-tender, positive bowel sounds Musculoskeletal: no edema, pulses present Neurological: moves all 4 limbs Psychiatric: normal affect, A&O x 3 Dx/Plan - Plan * 57M hx breast ca p/w cc: weakness * * hypercalcemia, improving * concerned related to potential malignancy given pattern of radiographic findings in CT vs renal dysfunction and dehydration * improving - IVF, calcitonin * apprec nephrology c/s JOSSELIN, improving * likely 2/2 vol depletion/ dehydration * continue to monitor * close I/O * suspect improvement with hydration suggesting pre-renal component CT chest/abd/pelv finding c/w potential metastatic dz * plan for CT chest bx * plan for MRI brain to eval for possible mets recent hip fx * pain controlled, stable diet: renal, as sushma activity: as sushma dvt ppx heparin 2/2 renal dysfxn Review of Systems - Medications/Allergies Allergies/Adverse Reactions: Allergies Allergy/AdvReac Type Severity Reaction Status Date / Time pseudoephedrine Allergy Verified 02/20/18 18:44 Medications: Current Medications Acetaminophen (Tylenol) 650 mg PO Q4H PRN PRN Reason: Headache/Fever or Pain Last Admin: 02/21/18 22:33 Dose: 650 mg Acetaminophen (Tylenol) 1,000 mg PO Q4H PRN PRN Reason: MINOR PAIN [BIOPSY ORDERS] Alprazolam (Xanax) 0.5 mg PO QAM [facility] Last Admin: 02/24/18 08:33 Dose: 0.5 mg Alprazolam (Xanax) 1 mg PO QPM [facility] Last Admin: 02/23/18 21:38 Dose: 1 mg Dextrose/Water (Dextrose 50%) 25 gm SLOW IVP PRN PRN PRN Reason: Hypoglycemia Docusate Sodium (Colace) 100 mg PO BID [facility] Last Admin: 02/24/18 08:34 Dose: Not Given Famotidine (Pepcid) 20 mg PO 2100 [facility] Last Admin: 02/23/18 21:38 Dose: 20 mg Glucagon (Glucagon) 1 mg IM PRN PRN PRN Reason: Hypoglycemia Guaifenesin/Dextromethorphan (Robitussin Dm) 15 ml PO Q4H PRN PRN Reason: Cough Heparin Sodium (Porcine) (Heparin) 5,000 units SC BID [facility] Last Admin: 02/24/18 08:34 Dose: 5,000 units Hydralazine HCl (Apresoline) 10 mg SLOW IVP Q4H PRN PRN Reason: SBP Greater Than 170 Last Admin: 02/23/18 08:34 Dose: 10 mg Dextrose/Water (D5w) 1,000 mls @ 0 mls/hr IV .Q0M PRN; As Directed PRN Reason: Hypoglycemia Sodium Chloride (Normal Saline 0.9%) 1,000 mls @ 100 mls/hr IV .Q10H [facility] Last Admin: 02/24/18 09:16 Dose: 1,000 mls Magnesium Hydroxide (Milk Of Magnesium) 30 ml PO DAILYPRN PRN PRN Reason: Constipation Last Admin: 02/23/18 06:35 Dose: 30 ml Nadolol (Corgard) 80 mg PO DAILY [facility] Last Admin: 02/24/18 08:33 Dose: 80 mg Polyethylene Glycol (Miralax) 17 gm PO DAILY [facility] Last Admin: 02/24/18 08:34 Dose: Not Given
--- NOTE | 2018-02-24 09:29 | PDOC.PN ---
- Subjective Encounter Start Date: 02/23/18 Encounter Start Time: 15:00 Subjective: nsg notes rev, fatou ovn, pt no new c/o, no visitors at bedside today - Objective Resuscitation Status: Resuscitation Status FULL:Full Resuscitation Vital Signs & Weight: Vital Signs (12 hours) Temp Pulse Resp BP Pulse Ox 02/24/18 07:05 97.6 F 82 20 157/95 H 90 L 02/24/18 03:48 98 F 87 16 168/109 H 90 L 02/23/18 23:16 97.4 F L 84 20 176/109 H 90 L Weight Admit Weight 168 lb 4 oz Weight 180 lb 9.6 oz I&O: 02/23/18 02/24/18 02/25/18 06:59 06:59 06:59 Intake Total 3030 2950 Output Total 2500 1300 Balance 530 1650 Result Diagrams: 02/21/18 05:05 02/22/18 13:55 Phys Exam - Physical Examination Constitutional: NAD HEENT: PERRLA, moist MMs, sclera anicteric Respiratory: no wheezing, no rales, no rhonchi, clear to auscultation bilateral Gastrointestinal: soft, non-tender, positive bowel sounds Musculoskeletal: pulses present Neurological: moves all 4 limbs Psychiatric: normal affect, A&O x 3 Dx/Plan - Plan * * 57M hx breast ca p/w cc: weakness * * hypercalcemia, improving * concerned related to potential malignancy given pattern of radiographic findings in CT vs renal dysfunction and dehydration * improving - IVF, calcitonin * apprec nephrology c/s * d/c tele JOSSELIN, improved * likely 2/2 vol depletion/ dehydration * continue to monitor * close I/O * apprec nephro c/s * suspect improvement with hydration suggesting pre-renal component CT chest/abd/pelv finding c/w potential metastatic dz * plan for CT chest bx * plan for MRI brain to eval for possible mets * apprec onc c/s recent hip fx * pain controlled, stable * at pt and family request will obtain ortho c/s diet: renal, as sushma activity: as sushma dvt ppx heparin 2/2 renal dysfxn Review of Systems - Medications/Allergies Allergies/Adverse Reactions: Allergies Allergy/AdvReac Type Severity Reaction Status Date / Time pseudoephedrine Allergy Verified 02/20/18 18:44 Medications: Current Medications Acetaminophen (Tylenol) 650 mg PO Q4H PRN PRN Reason: Headache/Fever or Pain Last Admin: 02/21/18 22:33 Dose: 650 mg Acetaminophen (Tylenol) 1,000 mg PO Q4H PRN PRN Reason: MINOR PAIN [BIOPSY ORDERS] Alprazolam (Xanax) 0.5 mg PO QAM [facility] Last Admin: 02/24/18 08:33 Dose: 0.5 mg Alprazolam (Xanax) 1 mg PO QPM [facility] Last Admin: 02/23/18 21:38 Dose: 1 mg Dextrose/Water (Dextrose 50%) 25 gm SLOW IVP PRN PRN PRN Reason: Hypoglycemia Docusate Sodium (Colace) 100 mg PO BID [facility] Last Admin: 02/24/18 08:34 Dose: Not Given Famotidine (Pepcid) 20 mg PO 2100 [facility] Last Admin: 02/23/18 21:38 Dose: 20 mg Glucagon (Glucagon) 1 mg IM PRN PRN PRN Reason: Hypoglycemia Guaifenesin/Dextromethorphan (Robitussin Dm) 15 ml PO Q4H PRN PRN Reason: Cough Heparin Sodium (Porcine) (Heparin) 5,000 units SC BID [facility] Last Admin: 02/24/18 08:34 Dose: 5,000 units Hydralazine HCl (Apresoline) 10 mg SLOW IVP Q4H PRN PRN Reason: SBP Greater Than 170 Last Admin: 02/23/18 08:34 Dose: 10 mg Dextrose/Water (D5w) 1,000 mls @ 0 mls/hr IV .Q0M PRN; As Directed PRN Reason: Hypoglycemia Sodium Chloride (Normal Saline 0.9%) 1,000 mls @ 100 mls/hr IV .Q10H [facility] Last Admin: 02/24/18 09:16 Dose: 1,000 mls Magnesium Hydroxide (Milk Of Magnesium) 30 ml PO DAILYPRN PRN PRN Reason: Constipation Last Admin: 02/23/18 06:35 Dose: 30 ml Nadolol (Corgard) 80 mg PO DAILY [facility] Last Admin: 02/24/18 08:33 Dose: 80 mg Polyethylene Glycol (Miralax) 17 gm PO DAILY [facility] Last Admin: 02/24/18 08:34 Dose: Not Given
--- NOTE | 2018-02-24 10:01 | PRG ---
DATE OF SERVICE: 02/24/2018 SUBJECTIVE: I visit with Mr. Prakash this morning briefly. He was mostly sleeping. He just had some Xanax. I tried to discuss MediPort, but I get the impression that he just did not want to talk about it right now, so we will follow along with you, could [facility], could also be done as an outpatient. He certainly has a significant malignancy with diffuse met astatic disease and so I think he needs all the options on the table before we start with any invasiv e procedures. We will leave that up to the primary team or Oncology. We will follow along.
[2018-02-24] MEDS: Acetaminophen 500 MG TAB PO PRN ×2 (11:19→19:35)
[2018-02-24] MEDS: hydrALAZINE 20 MG/ML VIAL SLOW IVP PRN ×2 (11:44→19:32)
--- NOTE | 2018-02-24 14:12 | RAD ---
RIGHT HUMERUS 2 VIEWS: HISTORY: Humerus fracture. COMPARISON: None. FINDINGS: There is somewhat of a permeative appearance of the cortex of the humerus which may be sequelae of pa tient's metastatic disease. There is satisfactory appearance of the lateral plate and screw hardware , although there is backing out of what appears to be a locking screw, third from distal tip. IMPRESSION: 1. Permeative appearance of the cortex of humerus likely sequelae of metastatic pathologic fracture. 2. Partial backing out of a locking screw, third from tip. POS: [facility]
--- NOTE | 2018-02-24 19:37 | PRG ---
DATE OF SERVICE: 02/24/2018 SERVICE: Pulmonary Medicine. INTERVAL HISTORY: The patient is doing fine from a respiratory standpoint. He is breathing comfortably. He has no chest discomfort, nausea, vomiting or shortness of breath at this time. PHYSICAL EXAMINATION: VITAL SIGNS: Afebrile, pulse 82, blood pressure 164/97, respirations 20 and saturation 92% on room air. GENERAL: The patient is awake and alert, in no apparent distress. LUNGS: Excellent air entry. There is no prolonged expiratory phase or wheezing. HEART: Normal rate and regular. ABDOMEN: Soft, nontender and nondistended. Bowel sounds are positive. MUSCULOSKELETAL: No cyanosis or clubbing. No pitting in the bilateral lower extremities. NEUROLOGIC: Grossly nonfocal. ASSESSMENT: Widespread metastatic disease with history of breast cancer. PLAN: Pulmonary will continue to follow along intermittently during this hospital stay. We are awaiting pathology results. Dr. Nguyen will resume care on Monday. Please call me if there are any respiratory issues that come up sooner. LJ
[2018-02-24] MEDS: ALPRAZolam 1 MG TAB PO SCH (21:34)
[2018-02-24] MEDS: Famotidine 20 MG TAB PO SCH (21:34)
--- NOTE | 2018-02-25 00:16 | PRG ---
DATE OF SERVICE: 02/24/2018 SUBJECTIVE: The patient was seen and examined, seems to be doing okay and noted with the following v ital signs. PHYSICAL EXAMINATION: VITAL SIGNS: Blood pressure 164/97, respiratory rate of 20, O2 sat of 92% with a pulse of 82. HEENT: Unremarkable with moist oral mucosa. Neck was supple. No conjunctival injection or icterus. CARDIOVASCULAR SYSTEM: First and second heart sounds were heard. RESPIRATORY SYSTEM: Clear to auscultation. DIGESTIVE SYSTEM: Revealed a benign abdomen with positive bowel sounds. EXTREMITIES: No peripheral edema. SKIN: No new gross rash. NEUROLOGIC: Alert, no lateralizing sign. IMPRESSION: 1. Severe hypercalcemia in the context of problem #2. 2. Metastatic bone disease. 3. Acute kidney injury in the context of severe hypercalcemia, which seems to have resolved. PLAN: 1. Continue renal supportive measures. 2. Further management to be dependent on the clinical course.
[2018-02-25] MEDS: hydrALAZINE 20 MG/ML VIAL SLOW IVP PRN (04:33)
[2018-02-25] MEDS: Sodium Chloride 0.9% 1,000 ML IV SCH ×2 (04:41→22:23)
[2018-02-25] MEDS: cloNIDine 0.1 MG TAB PO PRN ×2 (05:34→11:56)
[2018-02-25] MEDS: Heparin 5,000 UNITS/ML VIAL SC SCH ×2 (08:01→22:23)
[2018-02-25] MEDS: ALPRAZolam 0.5 MG TAB PO SCH (08:01)
[2018-02-25] MEDS: Nadolol 40 MG TAB PO SCH (08:01)
[2018-02-25] MEDS: Polyethylene Glycol 3350 17 GM Packet PO SCH (08:02)
[2018-02-25] MEDS: Docusate 100 MG CAP PO SCH ×2 (08:02→22:23)
[2018-02-25 08:25] LABS: #Eosinphils 0.1 thou/uL (0.0-0.7); #Lymphocytes 0.7 thou/uL (1.20-3.40); #Monocytes 0.6 thou/uL (0.11-0.59); #Neutrophils 6.1 thou/uL (1.40-6.50); %Basophils 0.3 % (0.0-1.0); %Lymphocytes 9.8 % (21.0-51.0); %Monocytes 8.1 % (0.0-10.0); %Neutrophils 80.8 % (42.0-75.0); Mean Corpuscular HGB CONC 31.3 g/dL (32.0-36.0); Mean Corpuscular Hemoglobin 27.7 pg (27.0-31.0); Mean Corpuscular Volume 88.3 fl (80.0-94.0); Mean Platelet Volume 8.7 fL (7.4-10.4); Platelet Count 329 thou/uL (130-400); RBC Distribution Width 12.8 % (11.5-14.5); Red Blood Cell (RBC) Count 5.07 mill/uL (4.70-6.10); White Blood Cell (WBC) Count 7.5 thou/uL (4.8-10.8)
[2018-02-25 08:42] LABS: ALT (SGPT) 15 U/L (8-55); AST (SGOT) 35 U/L (5-34); Albumin 2.9 g/dL (3.5-5.0); Alkaline Phosphatase 162 U/L (40-150); Anion Gap 16 mmol/L (10-20); BUN (Urea Nitrogen) 18 mg/dL (8.4-25.7); Bilirubin, Total 0.4 mg/dL (0.2-1.2); Calc. Creatinine Clearance 133 mL/min (70-130); Calcium 7.9 mg/dL (7.8-10.44); Carbon Dioxide 20 mmol/L (22-29); Chloride 103 mmol/L (98-107); Estimated GFR-MDRD Greater than 90; Globulin 3.4 g/dL (2.4-3.5); Glucose 96 mg/dL (70-105); Potassium 3.4 mmol/L (3.5-5.1); Protein, Total 6.3 g/dL (6.0-8.3); Sodium 136 mmol/L (136-145)
--- NOTE | 2018-02-25 21:58 | PRG ---
DATE OF SERVICE: 02/25/2018 SUBJECTIVE: The patient was seen and examined with no new complaint noted with the following vital s igns. PHYSICAL EXAMINATION: VITAL SIGNS: Afebrile with temperature 97.8, pulse 95, respiratory rate of 16, O2 sat of 93%, blood pressure 160/80. HEENT: Unremarkable with moist oral mucosa. NECK: Supple. No conjunctival injection or icterus. CARDIOVASCULAR: First and second heart sounds were heard. RESPIRATORY: Clear to auscultation. DIGESTIVE: Revealed a benign abdomen with positive bowel sounds. EXTREMITIES: No peripheral edema. SKIN: No new gross rash. LYMPHATICS: No peripheral lymphadenopathy. LABORATORY INVESTIGATION: Showed a potassium of 3.4, calcium down to 7.9, creatinine 0.7. IMPRESSION: 1. Severe hypercalcemia in the context of malignant metastatic bone disease. 2. Acute kidney injury, all improved. 3. Hypokalemia. PLAN: 1. Replete potassium. 2. Continue renal supportive measures. 3. Further management to be dependent on the clinical course. We will likely discontinue IV fluid a t this point.
[2018-02-25] MEDS: ALPRAZolam 1 MG TAB PO SCH (22:06)
[2018-02-25] MEDS: Famotidine 20 MG TAB PO SCH (22:23)
--- NOTE | 2018-02-25 23:54 | PDOC.PN ---
- Subjective Encounter Start Date: 02/25/18 Encounter Start Time: 14:00 Subjective: nsg notes rev, fatou ovn, no new c/o, family at bedside - pt with poor -: appetite in general and intermittently sleepy - Objective Resuscitation Status: Resuscitation Status FULL:Full Resuscitation Vital Signs & Weight: Vital Signs (12 hours) Temp Pulse Resp BP BP Pulse Ox 02/25/18 20:40 98.0 F 95 16 145/92 H 93 L 02/25/18 16:14 97.8 F 95 28 H 116/80 88 L 02/25/18 16:00 16 02/25/18 12:00 16 02/25/18 11:56 161/98 H Weight Admit Weight 168 lb 4 oz Weight 176 lb I&O: 02/24/18 02/25/18 02/26/18 06:59 06:59 06:59 Intake Total 2950 2737 1700 Output Total 1300 625 Balance 1650 2112 1700 Result Diagrams: 02/26/18 05:16 02/26/18 05:16 Phys Exam - Physical Examination Constitutional: NAD HEENT: PERRLA, moist MMs, sclera anicteric Respiratory: no wheezing, no rales, no rhonchi, clear to auscultation bilateral Cardiovascular: RRR, no significant murmur, no rub Gastrointestinal: soft, non-tender, positive bowel sounds Musculoskeletal: no edema, pulses present Neurological: moves all 4 limbs Psychiatric: normal affect, A&O x 3 Dx/Plan - Plan * 57M hx breast ca p/w cc: weakness * * hypercalcemia, improving * concerned related to potential malignancy given pattern of radiographic findings in CT vs renal dysfunction and dehydration * improving - d/c ivf * apprec nephrology c/s * d/c tele JOSSELIN, likely pre renal, resolved * likely 2/2 vol depletion/ dehydration * continue to monitor, close I/O * apprec nephro c/s CT chest/abd/pelv finding c/w potential metastatic dz * pending lung bx results for further chemo/ radiation plan as per oncology * stable respiratory status * MRI + for mets * apprec onc c/s * apprec surg c/s re: port placement recent hip fx * pain controlled, stable * apprec ortho c/s diet: renal, as sushma activity: as sushma dvt ppx start d/c planning - stable for swing level bed greater than 30 min at bedside discussing plan of care with patient and multiple family members Review of Systems - Medications/Allergies Allergies/Adverse Reactions: Allergies Allergy/AdvReac Type Severity Reaction Status Date / Time pseudoephedrine Allergy Verified 02/20/18 18:44 Medications: Current Medications Acetaminophen (Tylenol) 650 mg PO Q4H PRN PRN Reason: Headache/Fever or Pain Last Admin: 02/21/18 22:33 Dose: 650 mg Acetaminophen (Tylenol) 1,000 mg PO Q4H PRN PRN Reason: MINOR PAIN [BIOPSY ORDERS] Last Admin: 02/24/18 19:35 Dose: 1,000 mg Alprazolam (Xanax) 0.5 mg PO QAM [facility] Last Admin: 02/25/18 08:01 Dose: 0.5 mg Alprazolam (Xanax) 1 mg PO QPM [facility] Last Admin: 02/25/18 22:06 Dose: 1 mg Clonidine (Catapres) 0.1 mg PO Q4H PRN PRN Reason: SBP GREATER THAN 160 Last Admin: 02/25/18 11:56 Dose: 0.1 mg Dextrose/Water (Dextrose 50%) 25 gm SLOW IVP PRN PRN PRN Reason: Hypoglycemia Docusate Sodium (Colace) 100 mg PO BID [facility] Last Admin: 02/25/18 22:23 Dose: Not Given Famotidine (Pepcid) 20 mg PO 2100 [facility] Last Admin: 02/25/18 22:23 Dose: Not Given Glucagon (Glucagon) 1 mg IM PRN PRN PRN Reason: Hypoglycemia Guaifenesin/Dextromethorphan (Robitussin Dm) 15 ml PO Q4H PRN PRN Reason: Cough Heparin Sodium (Porcine) (Heparin) 5,000 units SC BID [facility] Last Admin: 02/25/18 22:23 Dose: Not Given Hydralazine HCl (Apresoline) 10 mg SLOW IVP Q4H PRN PRN Reason: SBP Greater Than 170 Last Admin: 02/25/18 04:33 Dose: 10 mg Dextrose/Water (D5w) 1,000 mls @ 0 mls/hr IV .Q0M PRN; As Directed PRN Reason: Hypoglycemia Magnesium Hydroxide (Milk Of Magnesium) 30 ml PO DAILYPRN PRN PRN Reason: Constipation Last Admin: 02/23/18 06:35 Dose: 30 ml Nadolol (Corgard) 80 mg PO DAILY [facility] Last Admin: 02/25/18 08:01 Dose: 80 mg Polyethylene Glycol (Miralax) 17 gm PO DAILY [facility] Last Admin: 02/25/18 08:02 Dose: Not Given
[2018-02-26 05:54] LABS: #Eosinphils 0.1 thou/uL (0.0-0.7); #Monocytes 0.9 thou/uL (0.11-0.59); #Neutrophils 6.8 thou/uL (1.40-6.50); %Basophils 0.2 % (0.0-1.0); %Eosinophils 0.6 % (0.0-10.0); %Lymphocytes 11.1 % (21.0-51.0); %Monocytes 10.6 % (0.0-10.0); %Neutrophils 77.4 % (42.0-75.0); Hemoglobin 14.1 g/dL (14.0-18.0); Mean Corpuscular HGB CONC 31.6 g/dL (32.0-36.0); Mean Corpuscular Hemoglobin 28.4 pg (27.0-31.0); Mean Corpuscular Volume 89.9 fl (80.0-94.0); Mean Platelet Volume 8.3 fL (7.4-10.4); Platelet Count 319 thou/uL (130-400); Red Blood Cell (RBC) Count 4.98 mill/uL (4.70-6.10); White Blood Cell (WBC) Count 8.8 thou/uL (4.8-10.8)
[2018-02-26 06:54] LABS: Calcium 7.7 mg/dL (7.8-10.44)
[2018-02-26 06:58] LABS: ALT (SGPT) 16 U/L (8-55); AST (SGOT) 37 U/L (5-34); Albumin 2.8 g/dL (3.5-5.0); Alkaline Phosphatase 170 U/L (40-150); Anion Gap 13 mmol/L (10-20); BUN (Urea Nitrogen) 18 mg/dL (8.4-25.7); Bilirubin, Total 0.2 mg/dL (0.2-1.2); Calc. Creatinine Clearance 131 mL/min (70-130); Carbon Dioxide 20 mmol/L (22-29); Chloride 106 mmol/L (98-107); Estimated GFR-MDRD Greater than 90; Globulin 3.3 g/dL (2.4-3.5); Glucose 111 mg/dL (70-105); Potassium 4.1 mmol/L (3.5-5.1); Protein, Total 6.1 g/dL (6.0-8.3); Sodium 135 mmol/L (136-145)
[2018-02-26] MEDS: Nadolol 40 MG TAB PO SCH (09:06)
[2018-02-26] MEDS: ALPRAZolam 0.5 MG TAB PO SCH (09:06)
[2018-02-26] MEDS: Heparin 5,000 UNITS/ML VIAL SC SCH ×2 (09:06→20:58)
[2018-02-26] MEDS: Docusate 100 MG CAP PO SCH ×2 (11:21→20:58)
[2018-02-26] MEDS: Polyethylene Glycol 3350 17 GM Packet PO SCH (11:21)
[2018-02-26 11:36] LABS: ALT (SGPT) 30 U/L (8-55); AST (SGOT) 61 U/L (5-34); Albumin 2.3 g/dL (3.5-5.0); Alkaline Phosphatase 151 U/L (40-150); Anion Gap 16 mmol/L (10-20); BUN (Urea Nitrogen) 19 mg/dL (8.4-25.7); Bilirubin, Total 0.3 mg/dL (0.2-1.2); Calc. Creatinine Clearance 114 mL/min (70-130); Calcium 7.1 mg/dL (7.8-10.44); Carbon Dioxide 16 mmol/L (22-29); Chloride 107 mmol/L (98-107); Estimated GFR-MDRD Greater than 90; Globulin 2.8 g/dL (2.4-3.5); Glucose 162 mg/dL (70-105); Potassium 5.3 mmol/L (3.5-5.1); Protein, Total 5.1 g/dL (6.0-8.3); Sodium 134 mmol/L (136-145)
[2018-02-26 11:44] LABS: Troponin I 0.011 ng/mL (< 0.028)
--- NOTE | 2018-02-26 11:45 | PDOC.EVN ---
Event Note - Event Note Event Note: Advanced Care planning Note Dx: metastatic ca unk primary (pending pathology result) hx of breast ca Discussed code status at bedside with: patient's MPOA (who is his best friend), patient's ex sister in law (sister of his ex ) Discussion Summary: Patient had previously during this hospitalization indicated he wanted to be DNR. Patient's MPOA and ex sister in law are aware of this and state that if he is unable to recover quickly or if he continues to decline, he would not want to be perpetually on a ventilator. They were at bedside when the code was initially called on the floor and agreed to progression through the code itself. They are currently calling family to come in as well. At this point in time he is considered full code with continued conversations throughout the day. They are aware he is very poor prognosis for senior [employer] and short term ( today) with high likelihood of dying today. Greater than 25 minutes spent discussing advanced care planning.
[2018-02-26 12:00] LABS: CO2 Tension 42.8 mmHg (35.0-45.0); pH, Arterial 7.25 (7.35-7.45)
[2018-02-26 12:01] LABS: Actual Bicarbonate (HCO3a) 18.4 mEq/L (22-26); Base Excess (BEa) -8.4 mEq/L (0 (+/-) 2.5); Hematocrit-ABG 42.1 % (42.0-52.0); Hemoglobin (Hb) 12.6 g/dL (14.0-18.0); O2 Tension (PaO2) 156.8 mmHg (80.0-100.0); Puncture Site RB
[2018-02-26] MEDS: Sodium Chloride 0.9% 1,000 ML IV SCH ×2 (12:04→16:15)
[2018-02-26] MEDS ORDERED: Norepinephrine 8 MG/0.9% NS 250 ML ONE (12:10)
--- NOTE | 2018-02-26 12:10 | PDOC.EVN ---
Event Note - Event Note Event Note: follow up advanced care planning d/w: pts best friend (MPOA), patient brother Jaspal (not MPOA) Patient's brother voices question of whether or not we should keep him on heart and lung support longer to "see if he will recover" - I have discussed with him that given his current status including requiring more and more life sustaining treatments post code, it is my opinion that meaningful recovery is unlikely. Patient's best friend and MPOA states that the patient would not want to be on ventilator support and he feels that is going against prior discussions with current degree of life support. However, he also states that he wants family involved in the decision. At this point in time, both individuals above are aware that his prognosis is grim as he is currently without neurological response without sedation. He is also developing hypotension - will start pressors and continue with IVF while awaiting work up. They have requested that we continue with maximal medical support as they gather more family. He is currently a do not re-code.
[2018-02-26 12:13] LABS: #Lymphocytes 0.7 thou/uL (1.20-3.40); #Monocytes 0.6 thou/uL (0.11-0.59); #Neutrophils 5.7 thou/uL (1.40-6.50); %Eosinophils 0.5 % (0.0-10.0); %Lymphocytes 9.9 % (21.0-51.0); %Monocytes 8.8 % (0.0-10.0); %Neutrophils 80.8 % (42.0-75.0); Hemoglobin 13.2 g/dL (14.0-18.0); Mean Corpuscular HGB CONC 32.3 g/dL (32.0-36.0); Mean Corpuscular Hemoglobin 28.5 pg (27.0-31.0); Mean Corpuscular Volume 88.3 fl (80.0-94.0); Mean Platelet Volume 8.5 fL (7.4-10.4); Platelet Count 329 thou/uL (130-400); RBC Distribution Width 12.8 % (11.5-14.5); Red Blood Cell (RBC) Count 4.64 mill/uL (4.70-6.10); White Blood Cell (WBC) Count 7.1 thou/uL (4.8-10.8)
[2018-02-26] MEDS ORDERED: Norepinephrine 8 MG/0.9% NS 250 ML IVPB SCH (12:15)
[2018-02-26] MEDS ORDERED: Sodium Chloride 0.9% 1,000 ML IV SCH (12:15)
[2018-02-26] MEDS ORDERED: DOPamine 400 MG/D5W 250 ML 250 ML IVPB SCH (12:15)
--- NOTE | 2018-02-26 13:01 | RAD ---
FRONTAL VIEW JOHNNIE: Date 02/26/18 CLINICAL HISTORY: Status post intubation, cardiopulmonary resuscitation. FINDINGS: Diffuse abnormal nodular opacities involve the lungs diffusely. Endotracheal tube terminates at the l evel of the thoracic inlet. There is extrinsic artifact overlying the chest, which limits detail. The re is an enteric catheter which traverses to the left abdomen and below field of view. Partially imag ed hardware at the proximal right humerus is seen. IMPRESSION: 1. Intubated patient. 2. Findings indicating diffuse pulmonary metastasis. POS: OPAL
[2018-02-26 16:10] VITALS: BP 132/86
--- NOTE | 2018-02-26 16:53 | PRG ---
DATE OF SERVICE: 02/26/2018 SUBJECTIVE: Huber Prakash apparently arrested this morning. He was transferred to the ICU. A message was relayed to me that he was in the ICU. OBJECTIVE: VITAL SIGNS: When I arrived, his pressure was 60, heart rate was in the 80s, respiratory rate is fro m mechanical ventilation. He was completely unresponsive. LUNGS: Clear. HEART: Regular rhythm. ABDOMEN: Soft. LABORATORY DATA: White count 7.1, hemoglobin 13.2 and platelets 329. Sodium 134, potassium 5.3, chl oride 107, bicarbonate 16, bicarbonate earlier this morning was 20. BUN 19, creatinine 0.8. Blood g as, pH 7.25, CO2 of 42 and pO2 of 156. ASSESSMENT AND PLAN: I met with the entire family that was available at the bedside plus his power o f healthcare. It was my impression as I explained to them that he was not planning on going forward with any type of treatment. I cannot imagine he was in the hospital in [place] with no patholo gical diagnosis being made with 2 fracture repairs. I called the pathologist and his biopsies that are done last Monday morning are still pending. I would see in the records from [place]. Family wants him to be a do not resuscitate patient. We will continue with current care, but will no t code him again. If he is weaned off pressors, we will not restart these. There is really no reaso n to take him down for a head CT or CT pulmonary angiogram since he would not react to any abnormalit y, we find. The family says they are ready for him to be at peace. He is a devastating recurrence o f his malignancy, most likely as the diagnosis he would be nice if we had a pathological diagnosis to confirm that, but this fits clinically. His prognosis for survival is 0, long-term and his prognosi s for any type of functional response prior to today was extremely poor at best. CRITICAL CARE TIME: 30 minutes.
[2018-02-26] MEDS ORDERED: Lorazepam 2 MG/ML VIAL ONE (18:01)
[2018-02-26] MEDS: Lorazepam 2 MG/ML VIAL SLOW IVP PRN ×3 (18:10→19:30)
[2018-02-26] MEDS: Lorazepam 2 MG/ML VIAL SLOW IVP SCH ×2 (18:16→18:23)
--- NOTE | 2018-02-26 18:19 | PRG ---
DATE OF SERVICE: 02/25/2018 SUBJECTIVE: The patient seems not to be doing very well. The patient seems to have had a cardiopulm onary event and the code status is being discussed, but at this point the patient is DNR; noted with the following vital signs. PHYSICAL EXAMINATION: VITAL SIGNS: Blood pressure 126/90, pulse 82, respiratory rate of 15. HEENT: Unremarkable. CARDIOVASCULAR: First and second heart sounds were heard. RESPIRATORY: Clear to auscultation. ABDOMEN: Digestive system revealed a benign abdomen. EXTREMITIES: No peripheral edema. LABORATORY INVESTIGATION: Showed a potassium of 5.3, calcium of 7.1, bicarbonate of 16. IMPRESSION: 1. Hyperkalemia in the context of worsening metabolic acidosis. 2. Metabolic acidosis. 3. Hypocalcemia. The patient started off with severe hypercalcemia, now hypocalcemia. PLAN: 1. The plan will be dependent on the extent of treatment that is being allowed by the family and als o the wish of the patient. 2. Biopsy result will soon be up and decision will be made on chemotherapy or not.
[2018-02-26] MEDS ORDERED: Morphine 4 MG/ML VIAL SLOW IVP PRN ×2 (19:05→19:45)
[2018-02-26 19:28] VITALS: TEMP 99.1
--- NOTE | 2018-02-26 23:28 | PDOC.PN ---
- Subjective Encounter Start Date: 02/26/18 Encounter Start Time: 12:00 - Objective Resuscitation Status: Resuscitation Status DNR:Do Not Resuscitate Vital Signs & Weight: Vital Signs (12 hours) Temp Pulse Resp BP Pulse Ox 02/26/18 20:00 20 02/26/18 19:53 99.1 F 84 20 100 02/26/18 19:00 99.1 F 02/26/18 18:00 20 02/26/18 16:00 99.3 F 20 02/26/18 15:58 83 132/86 02/26/18 14:00 20 02/26/18 13:32 83 128/96 H 02/26/18 11:33 87 103/77 Weight Admit Weight 168 lb 4 oz Weight 176 lb Most Recent Monitor Data Heart Rate from ECG 83 NIBP 108/73 NIBP BP-Mean 79 Respiration from ECG 21 SpO2 100 I&O: 02/25/18 02/26/18 02/27/18 06:59 06:59 06:59 Intake Total 2737 3100 1114 Output Total 625 650 Balance 2112 3100 464 Result Diagrams: 02/26/18 11:57 02/26/18 11:13 Additional Labs: Accuchecks 02/26/18 10:56 POC Glucose 124 H Phys Exam - Physical Examination Constitutional: NAD intubated HEENT: sclera anicteric coarse to auscultation b/l on ventilator Cardiovascular: RRR Gastrointestinal: soft, positive bowel sounds Dx/Plan - Plan * 57M hx breast ca p/w cc: weakness * * acute arrest * unclear etiology at this point * poor prognosis in setting of widely metastatic Ca * unwitnessed arrest - PEA * please see code note for full details * hypotension w/ bradycardia - dopamine gtt * levophed gtt * hypercalcemia, initially resolved, pending f/u serologies JOSSELIN, likely pre renal, initially resolved s/p hydration CT chest/abd/pelv finding c/w potential metastatic dz * pending lung bx * MRI brain + for mets * according to family @ bedside, pt was supposed to have f/u chemo and radiation approx 4 yrs ago when he underwent resection; they suspect he may have had mets @ that time as well recent hip fx * pain controlled, stable * apprec ortho c/s diet: renal, as sushma activity: as sushma dvt ppx see code status discussions as outlined in advanced care planning notes pt is transferred to ICU on ventilator support with inotropic agents as above extremely poor short term prognosis Review of Systems - Medications/Allergies Allergies/Adverse Reactions: Allergies Allergy/AdvReac Type Severity Reaction Status Date / Time pseudoephedrine Allergy Verified 02/20/18 18:44
[2018-02-27] MEDS ORDERED: Famotidine/PF 20 mg/2ml Vial SLOW IVP SCH (09:00)
[2018-02-27 13:16] LABS: Alb/Glob Ratio 0.8 (0.7-1.7); Albumin 2.4 g/dL (2.9-4.4); Alpha-1-Globulin 0.3 g/dL (0.0-0.4); Beta-Globulin 0.9 g/dL (0.7-1.3); Gamma-Globulin 1.1 g/dL (0.4-1.8); Globulin, Total 3.3 g/dL (2.2-3.9); IgA - Total IgA (Sendout) 407 mg/dL (90-386); Immunoglobulin - G (Sendout) 1014 mg/dL (700-1600); Immunoglobulin - M (Sendout) 45 mg/dL (20-172); M-Spike Not Observed g/dL (Not Observed)
--- NOTE | 2018-02-27 15:14 | DIS ---
DISCHARGE DIAGNOSES: Of note, the patient is at the time of discharge. 1. Metastatic cancer to lung, bone, brain, and liver, unknown primary, but highly suspected to be br east cancer. 2. History of breast cancer. 3. Acute kidney injury. 4. Hypercalcemia. BRIEF SUMMARY OF HOSPITAL COURSE: A 57-year-old male with a known history of breast cancer, who was lost to followup for his oncologic concerns approximately 4-5 years prior to initial presentation at our facility. Patient initially presented to our hospital with a chief complaint of weakness and was found to have hypercalcemia with acute kidney injury, warranting initial admission. Please see the original history and physical for full details surrounding admission. In the subsequent treatment an d evaluation of the patient, he was found to have metastatic cancer to bone, brain, lung, and liver. CT-guided biopsies have been completed and are pending. The patient does have a longstanding histor y of breast cancer, status post resection approximately 4-5 years ago. Post-resection, the patient d id not present for followup chemotherapy or radiation. During this hospitalization, the patient was seen by the specialists noted above, secondary to compli cations from widely metastasized cancer. Initially, the patient's hypercalcemia and acute kidney inj ury were significantly improved with IV hydration. However, the patient's chronic weakness was not i mproved whatsoever. Unfortunately, the patient underwent a PEA arrest, for which he underwent a code blue including CPR, BLS, and ACLS algorithms. He was subsequently intubated and moved to the intens trisha care unit; however, after many conversations with multiple family members, a decision was made fo r terminal extubation as the patient had discussed with his medical POA, while he was alive, that he would not want to be maintained on artificial life support. Please see official code records and certificate for further details. Thank you for asking me to care for the patient. Questions or concerns, contact me at [facility].
--- NOTE | 2018-03-01 15:02 | EKG ---
Test Reason : Blood Pressure : / mmHG Vent. Rate : 077 BPM Atrial Rate : 077 BPM P-R Int : 150 ms QRS Dur : 090 ms QT Int : 404 ms P-R-T Axes : 021 -26 141 degrees QTc Int : 457 ms Normal sinus rhythm Minimal voltage criteria for LVH, may be normal variant T wave abnormality, consider lateral ischemia Abnormal ECG Confirmed by ISABELLE JAY ([id number]), department editor HERNANDEZ LEWIS ([id number]) on 03/01/2018 3:00:25 PM Referred By: Confirmed By:ISABELLE JAY
--- NOTE | 2018-03-20 06:01 | PQF ---
Huber PrakashSHAAN [id number] U- [id number] [id number] CLINICAL DOCUMENTATION CLARIFICATION FORM: POST DISCHARGE Addendum to original discharge summary date: 03/14/2018 Date: 03/20/2018 ATTN: Dr. Le Please exercise your independent, professional judgment in responding to the clarification form. Clinical indicators are provided on the bottom of this form for your review Please check appropriate box(s): [ x ] Protein Calorie Malnutrition: [ ] Mild [ ] Moderate [ x ] Severe [ ] Other Malnutrition (please specify) __ [ ] Underweight without malnutrition [ ] Cachexia [ ] Other diagnosis [ ] Unable to determine In addition, please specify: Present on Admission (POA): [ x ] Yes [ ] No [ ] Unable to determine CLINICAL INDICATORS - SIGNS / SYMPTOMS / LABS BMI of 23. ER: Weakness/confusion/decreased appetite/ reports weight loss. Decreased motor strength x 4 ext 3/5 , generalized weakness. H&P: failure to thrive; not able to eat or drink from last 2 weeks d/t very poor appetite. 199 lbs in December currently around 176 nearly 23 lb loss 3-28 Nutrition Consult: 24% weight change in 1 month. Malnutrition r/t restrictive eating, possible new malignancy. OT eval: BUE strength 4- 4-2 Dr. Le: JOSSELIN, likely pre renal, initially resolved s/p hydration. RISK FACTORS 4-18 DC Summary: metastatic cancer to lung, bone, brain, and liver, unknown primary, but highly suspected to be breast cancer. TREATMENT: 1. Recommend a liberalized Regular diet, Low Sodium diet would be appropriate prison. 2. Increased Ensure Enlive to TID to aid with intake. 3. If patient continues to with minimal intake, would recommend placing a dobhoff for EN. Dietary consult. Moderate Malnutrition (in acute illness) Energy Intake: <75% of estimated energy requirement for > 7 days Weight Loss: 1-2%/1 week; 5%/ 1 month; 7.5%/3 months Other: mild body fat loss; mild muscle mass loss; mild fluid accumulation; Severe Malnutrition (in acute illness) Energy Intake: < 50% of estimated energy requirement for > 5 days Weight Loss: >1-2%/1 week; >5%/1 month; >7.5%/3 months Other: moderate body fat loss; moderate muscle mass loss; moderate- severe fluid accumulation; measurably reduced retort load expediter strength Moderate Malnutrition (in chronic illness) Energy Intake: <75% of estimated energy requirement for >1 month Weight Loss: 5%/1 month; 7.5%/3 months; 10%/6 months; 20%/1 year Other: mild body fat loss; mild muscle mass loss; mild fluid accumulation Severe Malnutrition (in chronic illness) Energy Intake: <75% of estimated energy requirement for >1 month Weight Loss: >5%/1 month; >7.5%/3 months; >10%/6 months; >20%/1 year Other: severe body fat loss; severe muscle mass loss; severe fluid accumulation ; measurably reduced retort load expediter strength (This form is maintained as a part of the permanent medical record) 2014 [employer]. All Rights Reserved Meghana [email or web address] [phone] MTDD
--- NOTE | 2018-03-20 06:13 | PQF ---
Huber PrakashSHAAN [id number] U- A01 [id number] CLINICAL DOCUMENTATION CLARIFICATION FORM: POST DISCHARGE Addendum to original discharge summary date: 03/14/2018 DATE: 03/20/2018 ATTN: Dr. Le Please exercise your independent, professional judgment in responding to the clarification form. Clinical indicators are provided on the bottom of this form for your review Please check appropriate box(s): [ x ] Encephalopathy: Type: [ x ] Acute [ ] Subacute [ ] Chronic Etiology: [ x ] Metabolic [ ] Toxic [ ] Other ( please specify) [ ] Transient Alteration of Awareness [ ] Other diagnosis (please specify) [ ] Unable to determine In addition, please specify: Present on Admission (POA): [ x ] Yes [ ] No [ ] Unable to determine For continuity of documentation, please document condition throughout progress notes and discharge summary. Thank You. CLINICAL INDICATORS - SIGNS / SYMPTOMS / LABS ER: Family reports deteriorating mental status has been worsening. ED DX: JOSSELIN; AMS; HYPERCALCEMIA; SIGNIFICANT DEHYDRATION. Celsa consult: mental status change likely in the context of severe hypercalcemia. Yaron consult: AMS, concerns of being hypercalcemia or brain metastasis. . RISK FACTORS H&P: JOSSELIN; Hypercalcemia likely d/t malignancy, failure to thrive. 4-18 DC Summary: metastatic cancer to lung, bone, brain, and liver, unknown primary, but highly suspected to be breast cancer. TREATMENTS: 3-30 Brain MRI multifocal hemorrhagic intracranial metastasis Correct hypercalcemia. I (This form is maintained as a part of the permanent medical record) 2014 [employer]. All Rights Reserved Meghana [email or web address] [phone] MTDD
--- NOTE | 2018-03-20 06:23 | PQF ---
Huber Prakash SHAAN POLANCO [id number] U- A01 [id number] CLINICAL DOCUMENTATION CLARIFICATION FORM: POST DISCHARGE Addendum to original discharge summary date: 03/14/2018 DATE: 03/20/2018 ATTN: Dr. Polanco Please exercise your independent, professional judgment in responding to the clarification form. Clinical indicators are provided on the bottom of this form for your review Please check appropriate box(s): [ x ] Acute Respiratory Failure: [ x ] with Hypoxia [ ] with Hypercapnia [ ] Acute On Chronic Respiratory Failure: [ ] with Hypoxia [ ] with Hypercapnia [ ] Acute Respiratory Failure due to: (etiology) [ [ ] Other diagnosis (please specify) [ ] Unable to determine In addition, please specify: Present on Admission (POA): [ ] Yes [ x ] No [ ] Unable to determine For continuity of documentation, please document condition throughout progress notes and discharge summary. Thank You. CLINICAL INDICATORS - SIGNS / SYMPTOMS / LABS 4-2 @ 0850 RT Assessment: Pulse OX 92% on 3LNC. 4-2 @ 1052 Code Blue - PEA. 4-2 @ 1127 on Mechanical Ventilator. 4-2 PN Wendy: completely unresponsive . 4-2 PN Ezeanuna: hyperkalemia in the context of worsening metabolic acidosis. 4-2 PN Rey: acute arrest unclear etiology at this point; unwitnessed arrest PEA. Hypotension w/ bradycardia. RISK FACTORS H&P: JOSSELIN; Hypercalcemia likely d/t malignancy, failure to thrive. 4-18 DC Summary: metastatic cancer to lung, bone, brain, and liver, unknown primary, but highly suspected to be breast cancer. TREATMENTS: 4-2 @ 1052 Code Blue - PEA. 4-2 @ 1127 on Mechanical Ventilator. 4-[address] Polanco: Dopamine gtt; Levophed gtt. (This form is maintained as a part of the permanent medical record) 2014 [employer]. All Rights Reserved Meghana [email or web address] [phone] MTDD
== END 2018-02-26 20:30 | disposition expired | DRG 682 ==
LOC: ERS 12:13 → 2NO 16:31 → SURG B 02-22 17:03 → CCU 02-26 11:15
PROVIDERS: ADMIT Internal Medicine; ATTEND Internal Medicine
PROC: 0BBL3ZX Excision of Left Lung, Percutaneous Approach, Diagnostic (ICD-10-PCS; principal; 2018-02-22)
PROC: 5A12012 Performance of Cardiac Output, Single, Manual (ICD-10-PCS; 2018-02-26)
PROC: 0BH17EZ Insertion of Endotracheal Airway into Trachea, Via Natural or Artificial Opening (ICD-10-PCS; 2018-02-26)
PROC: 5A1935Z Respiratory Ventilation, Less than 24 Consecutive Hours (ICD-10-PCS; 2018-02-26)
PROC: 5A2204Z Restoration of Cardiac Rhythm, Single (ICD-10-PCS; 2018-02-26)
DX: N17.9 Acute kidney failure, unspecified (principal); J96.01 Acute respiratory failure with hypoxia; G93.41 Metabolic encephalopathy; C78.02 Secondary malignant neoplasm of left lung; C78.7 Secondary malignant neoplasm of liver and intrahepatic bile duct; E83.51 Hypocalcemia; E86.0 Dehydration; C79.31 Secondary malignant neoplasm of brain; E87.2 Acidosis; C79.51 Secondary malignant neoplasm of bone; E83.52 Hypercalcemia; R62.7 Adult failure to thrive; Z66 Do not resuscitate; I10 Essential (primary) hypertension; F41.9 Anxiety disorder, unspecified; E87.5 Hyperkalemia; E87.6 Hypokalemia; Z74.01 Bed confinement status; E43 Unspecified severe protein-calorie malnutrition; Z68.23 Body mass index [BMI] 23.0-23.9, adult; Z85.3 Personal history of malignant neoplasm of breast; Z99.3 Dependence on wheelchair; Z88.8 Allergy status to other drugs, medicaments and biological substances; Z79.899 Other long term (current) drug therapy
CPT/HCPCS: 32405; 36415; 36416; 70553; 71045; 71250; 74177; 77012; 78306; 80048; 80053; 80069; 80307; 82306; 82378; 82550; 82553; 82805; 83690; 83735; 83970; 84155; 84165; 84443; 84484; 85025; 85610; 85730; 86301; 86334; 88305; 88333; 88341; 88342; 92950; 93005; 93306; 94002; 96360; 96361; A4216; A9503; G8978-GP-CK; G8979-GP-CJ; G8987-GO-CL; G8988-GO-CJ; J0360; J1642; J1644; J1940; J2060; J2250; J3010; J3489; J7050